=== PATIENT | female | born 2000 | race Caucasian/White ===

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

== ENCOUNTER → 2020-09-29 | Outpatient (CLI) | payer OTHER ==
[2020-10-01 02:21] LABS: CHLAMYDIA TRACHOMATIS, NAA Positive (Negative)
== END | disposition home or self-care (01) ==
LOC: LAB 10:43 → LAB SHORT 10:43
PROVIDERS: Obstetrics & Gynecology
DX: Z11.3 Encounter for screening for infections with a predominantly sexual mode of transmission (principal)
CPT/HCPCS: 87491; 87591

== ENCOUNTER → 2020-10-29 | Outpatient (CLI) | payer OTHER ==
[2020-10-31 04:10] LABS: CHLAMYDIA TRACHOMATIS, NAA Negative (Negative)
== END | disposition home or self-care (01) ==
LOC: LAB SHORT 09:30 → LAB 09:30
PROVIDERS: Obstetrics & Gynecology
DX: Z09 Encounter for follow-up examination after completed treatment for conditions other than malignant neoplasm (principal); Z86.19 Personal history of other infectious and parasitic diseases
CPT/HCPCS: 87491; 87591

== ENCOUNTER 2021-03-17 14:41 | Inpatient (IN) | payer OTHER ==
[~2021-03-17] VITALS: Ht 162.6 cm; Wt 68.6 kg
[2021-03-17 16:29] LABS: BASOPHILS ABSOLUTE AUTO 0.05 K/mm3 (0.00-0.23); BASOPHILS PERCENT AUTO 0 % (0-2); EOSINOPHILS ABSOLUTE AUTO 0.01 K/mm3 (0.00-0.68); EOSINOPHILS PERCENT AUTO 0 % (0-6); Hematocrit 32.3 % (33.0-51.0); Hemoglobin 10.7 g/dL (11.5-16.0); IMMATURE GRAN ABSOLUTE AUTO 0.07 K/mm3 (0.00-0.10); IMMATURE GRAN PERCENT AUTO 1 % (0-1); LYMPHOCYTES ABSOLUTE AUTO 1.97 K/mm3 (0.84-5.20); LYMPHOCYTES PERCENT AUTO 14 % (21-46); MONOCYTES ABSOLUTE AUTO 1.21 K/mm3 (0.16-1.47); MONOCYTES PERCENT AUTO 9 % (4-13); Mean Corpuscular HGB 27.5 pg (26.0-34.0); Mean Corpuscular HGB Conc 33.1 g/dL (31.5-36.5); Mean Corpuscular Volume 83 fL (80-100); Mean Platelet Volume 11.3 fL (9.1-12.4); NEUTROPHILS ABSOLUTE AUTO 10.86 K/mm3 (1.96-9.15); NEUTROPHILS PERCENT AUTO 77 % (41-73); Platelet Count 247 K/mm3 (150-400); RDW Coefficient Variation 14.1 % (11.7-14.2); Red Blood Cell Count 3.89 M/mm3 (3.80-5.20); White Blood Cell Count 14.17 K/mm3 (4.00-11.30)
[2021-03-17] MEDS ORDERED: PRENATAL TABLE1 EAC2 PO (16:29)
[2021-03-17] MEDS ORDERED: ALBU90OI INH (16:30)
[2021-03-17 16:46] LABS: Influenza A, PCR NEGATIVE (NEGATIVE); Influenza B, PCR NEGATIVE (NEGATIVE); Resp Syncytial Virus, PCR NEGATIVE (NEGATIVE); SARS-Cov-2 (COVID-19) PCR, MMC NEGATIVE (NEGATIVE)
--- NOTE | 2021-03-17 17:18 | NUR ---
PHARMACY NOTIFIED 1ST BAG AMPICILLIN 2GM LOADING DOSE HAD A HOLE IN IT, PHARMAY SENT SECOND BAG BUT WAS ONLY 1GM, PHARMACY NOTIFIED TO SENT ANOTHER 1GM AMPICILLIN BAG THE LOADING DOSE IS ORDERED FOR 2 GRAMS
--- NOTE | 2021-03-17 19:22 | NUR ---
rept to pm shift
[2021-03-18 05:53] LABS: Hemoglobin 9.7 g/dL (11.5-16.0); Mean Corpuscular HGB Conc 32.3 g/dL (31.5-36.5); Mean Corpuscular Volume 84 fL (80-100); Mean Platelet Volume 11.1 fL (9.1-12.4); Platelet Count 197 K/mm3 (150-400); RDW Standard Deviation 43.3 fL (35.1-46.3); Red Blood Cell Count 3.59 M/mm3 (3.80-5.20); White Blood Cell Count 12.58 K/mm3 (4.00-11.30)
--- NOTE | 2021-03-18 07:30 | NUR ---
ASSUMED CARE, ASSISTED PT WITH BREAST FEEDING
--- NOTE | 2021-03-18 20:58 | NUR ---
PT CALLS TO ASK WHAT SHE IS ALLOWED TO DO FAR ACTIVITY AT THIS POINT. SHE WAS OVERHEARD TYO BE SCREAMING AT THE FOB BY THE PRIMARY RN AND WHEN SHE ENTERED THE ROOM SHE SUGGESTED THAT BABY BE REMOVED WHILE THE PARENTS TAKE SOME TIME TO CALM DOWN. PT STATES THAT SHE FEELS VERY ANXIOUS TO BE COOPED UP IN HER ROOM AND WANTS TO GO OUTSIDE AND GET SOME FRESH AIR. THEY BOTH STATE THAT THEY ARE SAFE AND WOULD LIKE TO GO FOR A WALK WHLE WE WATCH BABY AT THE NURSES STATION.
--- NOTE | 2021-03-19 11:00 | NUR ---
DISCHARGE INSTRUCTIONS REVIEWED AND SIGNED. BERNADETTE MCCARTHY. DISCHARGED TO HOME.
== END 2021-03-19 11:10 | disposition home or self-care (01) | DRG 805 ==
LOC: OBS 14:41 → BC 14:41 → OBS 15:52 → BC 15:53
PROVIDERS: ADMIT Advanced Practice Midwife
PROC: 10E0XZZ Delivery of Products of Conception, External Approach (ICD-10-PCS; principal; 2021-03-17)
PROC: 10907ZC Drainage of Amniotic Fluid, Therapeutic from Products of Conception, Via Natural or Artificial Opening (ICD-10-PCS; 2021-03-17)
PROC: 00HU33Z Insertion of Infusion Device into Spinal Canal, Percutaneous Approach (ICD-10-PCS; 2021-03-17)
PROC: 3E0R3BZ Introduction of Anesthetic Agent into Spinal Canal, Percutaneous Approach (ICD-10-PCS; 2021-03-17)
PROC: 0UQMXZZ Repair Vulva, External Approach (ICD-10-PCS; 2021-03-17)
DX: O98.82 Other maternal infectious and parasitic diseases complicating childbirth (principal); O60.13X0 Preterm labor second trimester with preterm delivery third trimester, not applicable or unspecified; Z37.0 Single live birth; O99.324 Drug use complicating childbirth; O99.334 Smoking (tobacco) complicating childbirth; F17.210 Nicotine dependence, cigarettes, uncomplicated; Z20.822 Contact with and (suspected) exposure to COVID-19; O99.52 Diseases of the respiratory system complicating childbirth; J45.909 Unspecified asthma, uncomplicated; A74.9 Chlamydial infection, unspecified; F12.90 Cannabis use, unspecified, uncomplicated; O99.344 Other mental disorders complicating childbirth; F41.8 Other specified anxiety disorders; Z3A.36 36 weeks gestation of pregnancy; Z79.52 Long term (current) use of systemic steroids; Z79.899 Other long term (current) drug therapy; Z67.10 Type A blood, Rh positive; O70.0 First degree perineal laceration during delivery
CPT/HCPCS: 0241U; 36415; 51702; 59025; 85025; 85027; 86850; 86900; 86901; A9270; J0290; J1885; J2001; J2590; J3010; J7120

== ENCOUNTER → 2021-06-16 | Outpatient (CLI) | payer OTHER ==
[~2021-06-16] MED LIST changes: +ALBU90OI INH; +PRENATAL TABLE1 EAC2 PO
== END ==
LOC: LAB SHORT 09:35 → LAB 09:35
PROVIDERS: Advanced Practice Midwife
DX: Z01.419 Encounter for gynecological examination (general) (routine) without abnormal findings (principal)
CPT/HCPCS: G0123

== ENCOUNTER 2024-01-12 19:04 | Emergency (ER) | payer OTHER ==
[~2024-01-12] VITALS: Ht 167.6 cm; Wt 52.2 kg
[2024-01-12 19:23] VITALS: BP 113/86
== END 2024-01-12 22:40 | disposition home or self-care (01) ==
LOC: ER 19:04
DX: S61.012A Laceration without foreign body of left thumb without damage to nail, initial encounter (principal); W45.8XXA Other foreign body or object entering through skin, initial encounter; J45.909 Unspecified asthma, uncomplicated; Z79.899 Other long term (current) drug therapy
CPT/HCPCS: 12001; 99282-25

== ENCOUNTER → 2024-11-27 | Outpatient (CLI) | payer OTHER ==
[2024-12-03 09:10] LABS: C. TRACHOMATIS BY TMA,THINPREP Negative (Negative); N. GONORRHOEAE BY TMA,THINPREP Negative (Negative)
== END | disposition home or self-care (01) ==
LOC: LAB SHORT 18:55 → LAB 18:55
PROVIDERS: Advanced Practice Midwife
DX: Z01.419 Encounter for gynecological examination (general) (routine) without abnormal findings (principal); Z11.3 Encounter for screening for infections with a predominantly sexual mode of transmission
CPT/HCPCS: 87491; 87591; G0145

== ENCOUNTER → 2025-01-12 | Outpatient (CLI) | payer OTHER ==
[2025-01-12 16:41] LABS: Bacterial Vaginosis PCR Negative (NEGATIVE); Candida glabrata-krusei, PCR NOT DETECTED (NOT DETECT)
[2025-01-12 17:20] LABS: Candida Group, PCR DETECTED (NOT DETECT)
== END | disposition home or self-care (01) ==
LOC: LAB 14:37 → LAB SHORT 14:37
PROVIDERS: Family Medicine
DX: O99.513 Diseases of the respiratory system complicating pregnancy, third trimester (principal); O99.333 Smoking (tobacco) complicating pregnancy, third trimester; O23.593 Infection of other part of genital tract in pregnancy, third trimester; J45.909 Unspecified asthma, uncomplicated; N89.8 Other specified noninflammatory disorders of vagina
CPT/HCPCS: 81515; 87086

== ENCOUNTER → 2025-02-09 | Outpatient (CLI) | payer OTHER | LOC: LAB 11:24 → LAB SHORT 11:24 | DX: O99.512 Diseases of the respiratory system complicating pregnancy, second trimester (principal); O99.332 Smoking (tobacco) complicating pregnancy, second trimester; O09.92 Supervision of high risk pregnancy, unspecified, second trimester; J45.909 Unspecified asthma, uncomplicated | CPT/HCPCS: 87081; 87150 ==

== ENCOUNTER 2025-02-27 02:15 | Inpatient (IN) | payer OTHER ==
[2025-02-27] VITALS (36 sets, daily range): BP systolic 100–134; BP diastolic 49–79
[~2025-02-27] VITALS: Ht 162.6 cm; Wt 64.5 kg
--- NOTE | 2025-02-27 02:58 | NUR ---
QBL 65 SINCE ARRIVAL TO [facility]
[2025-02-27 03:35] LABS: BASOPHILS ABSOLUTE AUTO 0.04 K/mm3 (0.00-0.23); BASOPHILS PERCENT AUTO 0 % (0-2); EOSINOPHILS ABSOLUTE AUTO 0.08 K/mm3 (0.00-0.68); EOSINOPHILS PERCENT AUTO 1 % (0-6); Hematocrit 31.6 % (33.0-51.0); Hemoglobin 10.2 g/dL (11.5-16.0); IMMATURE GRAN ABSOLUTE AUTO 0.08 K/mm3 (0.00-0.10); IMMATURE GRAN PERCENT AUTO 1 % (0-1); LYMPHOCYTES ABSOLUTE AUTO 3.40 K/mm3 (0.84-5.20); LYMPHOCYTES PERCENT AUTO 21 % (21-46); MONOCYTES ABSOLUTE AUTO 1.23 K/mm3 (0.16-1.47); MONOCYTES PERCENT AUTO 8 % (4-13); Mean Corpuscular HGB Conc 32.3 g/dL (31.5-36.5); Mean Corpuscular Volume 84 fL (80-100); NEUTROPHILS ABSOLUTE AUTO 11.23 K/mm3 (1.96-9.15); NEUTROPHILS PERCENT AUTO 70 % (41-73); NRBC ABSOLUTE 0.00 K/mm3 (0.00-0.02); NRBC Auto 0.0 /100 WBC (0.0-0.2); Platelet Count 202 K/mm3 (150-400); RDW Coefficient Variation 13.9 % (11.7-14.2); RDW Standard Deviation 42.7 fL (35.1-46.3)
[2025-02-27 03:58] LABS: Fibrinogen 408.0 mg/dL (170-430); Prothrombin Time Results 11.1 Sec (9.7-11.5)
--- NOTE | 2025-02-27 04:02 | NUR ---
PERIPAD AND UNDERPAD QBL 43 G
[2025-02-27] MEDS ORDERED: CeFAZolin Sodium 2,000 MG in NS 100 ML IV SCH (04:20)
[2025-02-27] MEDS ORDERED: Tranexamic Acid 100 ML IV PRN (04:45)
[2025-02-27] MEDS ORDERED: FentaNYL 2mcg/ml-Bup 0.1% Epd 250 ML EPI PRN (04:45)
[2025-02-27] MEDS ORDERED: Carboprost Tromethamine 250 MCG/ML 1ML Amp IM PRN ×2 (04:45→07:45)
[2025-02-27] MEDS ORDERED: OXYTOCIN/RINGER'S LACTATE 500 ML IV PRN (04:45)
[2025-02-27] MEDS ORDERED: Ondansetron HCl 2 MG / ML 2ML Vial IV PRN (04:45)
[2025-02-27] MEDS ORDERED: ePHEDrine Sulfate 50 MG/ML 1ML Injection XX PRN (04:45)
[2025-02-27] MEDS ORDERED: Methylergonovine Maleate 0.2MG / ML 1ML Amp IM PRN ×2 (04:45→07:50)
[2025-02-27] MEDS ORDERED: Oxytocin 10 Unit / ML Vial IM PRN (04:45)
[2025-02-27] MEDS ORDERED: FentaNYL Citrate 50 MCG/ML 2 ML Injection IV PRN (05:00)
[2025-02-27] MEDS ORDERED: FentaNYL Citrate 50 MCG/ML 2 ML Injection ONE (05:05)
[2025-02-27] MEDS ORDERED: Albuterol HFA200 ACT/6.7 GM INH INH PRN (07:45)
[2025-02-27] MEDS ORDERED: Benzocaine Topical Anesthetic Spray 60GM TOP PRN (07:45)
[2025-02-27] MEDS ORDERED: Rho(D) Immune Globulin 300 MCG / SYR IM ONE (07:50)
[2025-02-27] MEDS ORDERED: FLU VACC TS2025-26(6MOS UP)/PF 45 MCG/0.5 ML SYRINGE IM SCH (07:50)
[2025-02-27] MEDS ORDERED: Witch Hazel/Glycerin PADS TOP PRN (07:50)
[2025-02-27] MEDS ORDERED: OXYTOCIN/RINGER'S LACTATE 500 ML IV SCH (07:55)
[2025-02-27] MEDS ORDERED: Prenatal Vit/FE Fumarate/FA 1 Tab PO SCH (09:00)
--- NOTE | 2025-02-27 17:24 | NUR ---
Pt reports pain, pain meds offered and [facility] meds, PT ask rn to quit asking questions because she was overwhelmed, RN offered to feed and help with nb, pt declined at this time, Instructed Pt to ask for help
--- NOTE | 2025-02-27 17:27 | NUR ---
Pt declines 1600 vital signs
[2025-02-28 04:54] VITALS: BP 107/52
[2025-02-28 06:41] VITALS: BP 123/64
[2025-02-28 07:14] LABS: BASOPHILS ABSOLUTE AUTO 0.05 K/mm3 (0.00-0.23); BASOPHILS PERCENT AUTO 0 % (0-2); EOSINOPHILS ABSOLUTE AUTO 0.07 K/mm3 (0.00-0.68); EOSINOPHILS PERCENT AUTO 1 % (0-6); Hematocrit 31.1 % (33.0-51.0); Hemoglobin 10.0 g/dL (11.5-16.0); IMMATURE GRAN ABSOLUTE AUTO 0.07 K/mm3 (0.00-0.10); IMMATURE GRAN PERCENT AUTO 1 % (0-1); LYMPHOCYTES ABSOLUTE AUTO 2.42 K/mm3 (0.84-5.20); LYMPHOCYTES PERCENT AUTO 18 % (21-46); MONOCYTES ABSOLUTE AUTO 1.10 K/mm3 (0.16-1.47); MONOCYTES PERCENT AUTO 8 % (4-13); Mean Corpuscular HGB Conc 32.2 g/dL (31.5-36.5); Mean Corpuscular Volume 85 fL (80-100); NEUTROPHILS ABSOLUTE AUTO 10.09 K/mm3 (1.96-9.15); NEUTROPHILS PERCENT AUTO 73 % (41-73); NRBC ABSOLUTE 0.00 K/mm3 (0.00-0.02); NRBC Auto 0.0 /100 WBC (0.0-0.2); Platelet Count 204 K/mm3 (150-400); RDW Coefficient Variation 13.9 % (11.7-14.2); RDW Standard Deviation 42.7 fL (35.1-46.3)
[2025-02-28 08:13] VITALS: BP 118/69
[2025-02-28] MEDS ORDERED: IBUP800 PO (11:12)
[2025-02-28 11:26] VITALS: BP 144/87
[2025-02-28 11:27] VITALS: BP 131/69
--- NOTE | 2025-02-28 11:49 | NUR ---
No acute changes t/o shift. Teaching done by RN, pt verbalized understanding. ID bands matched w/nb and verification form. Pt d/c'd home ambulatory to care of SO.
== END 2025-02-28 11:33 | disposition home or self-care (01) | DRG 806 ==
LOC: OBS 02:15 → BC 02:17 → OBS 02:38 → BC 02:40
PROVIDERS: ADMIT Obstetrics & Gynecology
PROC: 10E0XZZ Delivery of Products of Conception, External Approach (ICD-10-PCS; principal; 2025-02-27)
PROC: 10907ZC Drainage of Amniotic Fluid, Therapeutic from Products of Conception, Via Natural or Artificial Opening (ICD-10-PCS; 2025-02-27)
PROC: 4A1HXCZ Monitoring of Products of Conception, Cardiac Rate, External Approach (ICD-10-PCS; 2025-02-27)
DX: O45.8X3 Other premature separation of placenta, third trimester (principal); O99.324 Drug use complicating childbirth; Z37.0 Single live birth; Z3A.38 38 weeks gestation of pregnancy; O99.02 Anemia complicating childbirth; F12.90 Cannabis use, unspecified, uncomplicated; O99.334 Smoking (tobacco) complicating childbirth; F17.210 Nicotine dependence, cigarettes, uncomplicated; J45.909 Unspecified asthma, uncomplicated; O99.52 Diseases of the respiratory system complicating childbirth; O69.81X0 Labor and delivery complicated by cord around neck, without compression, not applicable or unspecified
CPT/HCPCS: 36415; 85025; 85384; 85610; 85730; 86850; 86900; 86901; 86923; A9270; J2590; J3010; J7120